=== PATIENT | male | born 1990 | race African-American/Black ===

== ENCOUNTER 2016-10-06 23:13 | Emergency (ER) | payer OTHER ==
[2016-10-06 23:21] VITALS: BP 111/73
[2016-10-06] MEDS ORDERED: Lidocaine 1% INJ* 10 MG/ML 30 ML SDV ONE (23:36)
[2016-10-07] MEDS ORDERED: HYDROcodone/ACETAMIN 5-325 MG* 1 TAB PO ONE (01:02)
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
== END 2016-10-07 02:17 | disposition home or self-care (01) ==
LOC: ED 23:13
DX: S01.91XA Laceration without foreign body of unspecified part of head, initial encounter (principal); W45.8XXA Other foreign body or object entering through skin, initial encounter; Y93.9 Activity, unspecified; Y92.149 Unspecified place in prison as the place of occurrence of the external cause; F17.210 Nicotine dependence, cigarettes, uncomplicated
CPT/HCPCS: 12004; 99282; J2001